=== PATIENT | female | born 1990 | race Caucasian/White ===

== ENCOUNTER 2017-02-12 17:22 | Emergency (ER) | payer OTHER ==
[2017-02-12 17:27] VITALS: BP 112/72; PULSE 83; TEMP 98.7; BMI 24.7
--- NOTE | 2017-02-12 17:36 | PDOC ---
History of Present Illness - General History Source: Patient Exam Limitations: No Limitations - History of Present Illness Initial Comments: 02/12/17 18:09 The patient is a 26 year old female who presents to the ED with complaints of lower abdominal pain and nausea for the past couple of weeks. The patient states that she has been trying to get for the past couple of months, had a test via blood test on December 11 which was negative but since then became and has been experiencing her symptoms. She states the pain is sharp and intermittent and is is aggravated when the patient drives over bumps in the road. Additionally she complains of urinary frequency, cloudy urine, and a stringy white vaginal discharge.She denies any vaginal bleeding. She denies any fevers, chills, vomiting, diarrhea or other urinary complaints. LMP was in July but the patient states her periods are typically irregular. She states she has her first appointment with an BAKER SECOND on Friday. Medical history: Hypothyroidism, on synthroid Surgical history: No surgeries Social history: Former smoker but quit a few months ago. Denies alcohol or drug use. <Tsering Grimm - Last Filed: 02/12/17 18:09> <Andrew Bradford - Last Filed: 02/12/17 18:30> - General Chief Complaint: Pain, Acute Stated Complaint: ABD PAIN 10WKS PREG Time Seen by Provider: 02/12/17 17:34 Past History <Tsering Grimm - Last Filed: 02/12/17 18:09> - Past Medical History Thyroid Disease: Yes - Reproductive History Is Patient Now?: Yes (PT STATES) Therapeutic (s) & number: Yes (1) - Psycho/Social/Smoking Cessation Hx Anxiety: No Suicidal Ideation: No Smoking History: Former smoker Have you smoked in the past 12 months: Yes Number of Cigarettes Smoked Daily: 4 If you are a former smoker, when did you quit?: 4 Information on smoking cessation initiated: Yes 'Breaking Loose' booklet given: 02/12/17 Hx Alcohol Use: No Drug/Substance Use Hx: No Substance Use Type: None <Andrew Bradford - Last Filed: 02/12/17 18:30> - Past Medical History Allergies/Adverse Reactions: Allergies Allergy/AdvReac Type Severity Reaction Status Date / Time No Known Allergies Allergy Verified 02/12/17 17:23 Home Medications: Ambulatory Orders Levothyroxine [Synthroid -] 25 mcg PO DAILY 02/12/17 Comb No.42/Folic Acid [Prena1 Chew Tablet] 0 mg PO DAILY 02/12/17 Review of Systems - Review of Systems Able to Perform ROS?: Yes Comments:: 02/12/17 18:12 CONSTITUTIONAL: Absent: fever, no chills, no fatigue EYES: Absent: visual changes ENT: Absent: ear pain, no sore throat CARDIOVASCULAR: Absent: chest pain, no palpitations RESPIRATORY: Absent: cough, no SOB GI: Present: lower abdominal pain, nausea Absent: no vomiting, no constipation, no diarrhea GENITOURINARY: Present: frequency, vaginal discharge Absent: dysuria, no hematuria MUSKULOSKELETAL: Absent: back pain, no arthralgia, no myalgia SKIN: Absent: rash NEURO: Absent: headache All Other Systems: Reviewed and Negative <Tsering Grimm - Last Filed: 02/12/17 18:09> *Physical Exam - Vital Signs Last Vital Signs Temp Pulse Resp BP Pulse Ox 98.7 F 83 16 112/72 100 02/12/17 17:23 02/12/17 17:23 02/12/17 17:23 02/12/17 17:23 02/12/17 17:23 - Physical Exam Comments: 02/12/17 18:14 GENERAL: Well-appearing, well-nourished. No apparent distress. HEENT: Normocephalic, atraumatic. PERRL, EOM intact. CARDIOVASCULAR: Normal S1, S2. Regular rate and rhythm. PULMONARY: Clear to auscultation bilaterally. ABDOMEN: Soft, mild tenderness over bladder and superpubic area, no guarding, no rebound , uterus not palpable, no CVAT EXTREMITIES: Normal ROM in all four extremities. No gross deformities. SKIN: Warm, dry. No rash NEUROLOGICAL: No focal neurological deficits. <Tsering Grimm - Last Filed: 02/12/17 18:09> - Vital Signs Last Vital Signs Temp Pulse Resp BP Pulse Ox 98.7 F 83 16 112/72 100 02/12/17 17:23 02/12/17 17:23 02/12/17 17:23 02/12/17 17:23 02/12/17 17:23 <Andrew Bradford - Last Filed: 02/12/17 18:30> ED Treatment Course - ADDITIONAL ORDERS Additional order review: Laboratory Results 02/12/17 17:33 Urine Color Yellow Urine Appearance Clear Urine pH 7.5 Ur Specific [place] 1.020 Urine Protein Trace Urine Glucose (UA) Negative Urine Ketones Negative Urine Blood Negative Urine Nitrite Negative Urine Bilirubin Negative Urine Urobilinogen 0.2 Ur Leukocyte Esterase Negative Urine HCG, Qual Positive <Tsering Grimm - Last Filed: 02/12/17 18:09> Medical Decision Making - Medical Decision Making 02/12/17 18:25 The momentary mild episodes of pain without bleeding or other abnormal vaginal discharge suggests a benign etiology, which likely involves changes to the musculoskeletal system or ligamentous attachments of the uterus. Ultrasound shows a normal IUP and urinalysis is negative. The patient has an appointment with her BAKER SECOND on Friday. Recommend bedrest until BAKER SECOND follow-up or return to the ER if there is more severe pain or vaginal bleeding. <Andrew Bradford - Last Filed: 02/12/17 18:30> *DC/Admit/Observation/Transfer - Attestations Scribe Attestion: 02/12/17 18:15 Documentation prepared by Tsering Grimm, acting as medical education coordinator for Andrew Mckeon MD. <Tsering Grimm - Last Filed: 02/12/17 18:09> - Discharge Dispostion Admit: No <Andrew Bradford - Last Filed: 02/12/17 18:30> Diagnosis at time of Disposition: Abdominal pain during in first trimester - Discharge Dispostion Disposition: HOME Condition at time of disposition: Stable - Patient Instructions Printed Discharge Instructions: Common Discomforts and Bodily Changes During Additional Instructions: You have a healthy appearing uterine . However, until consultation with your [facility] doctor, bedrest is recommended. He should return to the emergency room if there is any vaginal bleeding or more severe pain. - Post Discharge Activity Work/School Note: Back to Work
[2017-02-12 17:45] LABS: PH,URINE 7.5 (4.5-8); URINE APPEARANCE Clear; URINE BILIRUBIN Negative (NEGATIVE); URINE BLOOD Negative (NEGATIVE); URINE GLUCOSE (UA) Negative (NEGATIVE); URINE KETONE Negative (NEGATIVE); URINE LEUK ESTERASE Negative (NEGATIVE); URINE NITRITE Negative (NEGATIVE); URINE PROTEIN Trace (NEGATIVE); URINE UROBILINOGEN 0.2 (0.2-1.0)
[2017-02-12 17:49] LABS: URINE COLOR YELLOW
== END 2017-02-12 18:36 | disposition home or self-care (01) ==
LOC: FER 17:22
DX: O26.891 Other specified pregnancy related conditions, first trimester (principal); Z3A.00 Weeks of gestation of pregnancy not specified; E03.9 Hypothyroidism, unspecified; Z87.891 Personal history of nicotine dependence
CPT/HCPCS: 76801-TC; 81003; 84703; 99281-25

== ENCOUNTER 2018-04-18 10:41 | Emergency (ER) | payer OTHER ==
[2018-04-18 10:46] VITALS: BP 126/80; PULSE 87; TEMP 98; BMI 27.8
--- NOTE | 2018-04-18 11:25 | PDOC ---
History of Present Illness - General Chief Complaint: Laceration Stated Complaint: LACERATION Time Seen by Provider: 04/18/18 10:51 History Source: Patient - History of Present Illness Initial Comments: 04/18/18 11:33 Patient is a 27 year old female @ a self reported 17 weeks gestation presents to the ED c/o L foot injury. Patient states she was carrying a large can of fruit cocktail when it broke through the shopping bags landing on her foot. Denies any fall or head trauma. Can bear weight and ambulate with pain. Tetanus is UTD. Last OB-Processing Inspector appointment was earlier this week and she was told everything was normal. NKDA Surgical: denies Social: denies toxic habits OB-Processing Inspector: Dr. Severino ([facility]) Past History - Past Medical History Allergies/Adverse Reactions: Allergies Allergy/AdvReac Type Severity Reaction Status Date / Time No Known Allergies Allergy Verified 04/18/18 10:46 Home Medications: Ambulatory Orders Levothyroxine [Synthroid -] 25 mcg PO DAILY 02/12/17 Comb No.42/Folic Acid [Prena1 Chew Tablet] 0 mg PO DAILY 02/12/17 Thyroid Disease: Yes - Reproductive History Therapeutic (s) & number: Yes (1) - Suicide/Smoking/Psychosocial Hx Smoking History: Never smoked Have you smoked in the past 12 months: Yes Number of Cigarettes Smoked Daily: 4 If you are a former smoker, when did you quit?: 4 Information on smoking cessation initiated: No 'Breaking Loose' booklet given: 02/12/17 Hx Alcohol Use: No Drug/Substance Use Hx: No Substance Use Type: None Review of Systems - Review of Systems Constitutional: No: Chills, Fever HEENTM: No: Blurred Vision, Double Vision Respiratory: No: Cough, Shortness of Breath Cardiac (ROS): No: Chest Pain, Lightheadedness, Palpitations, Syncope ABD/GI: No: Constipated, Diarrhea, Nausea, Vomiting : No: Burning, Dysuria *Physical Exam - Vital Signs Last Vital Signs Temp Pulse Resp BP Pulse Ox 98.0 F 87 20 126/80 99 04/18/18 10:43 04/18/18 10:43 04/18/18 10:43 04/18/18 10:43 04/18/18 10:43 - Physical Exam General Appearance: Yes: Nourished, Appropriately Dressed HEENT: positive: Normal Voice, Hearing Grossly Normal Neck: positive: Trachea midline, Supple Respiratory/Chest: positive: Lungs Clear, Normal Breath Sounds Cardiovascular: positive: S1, S2. negative: JVD, Murmur Vascular Pulses: Dorsalis-Pedis (R): 2+, Doralis-Pedis (L): 2+ Gastrointestinal/Abdominal: positive: Normal Bowel Sounds, Soft, Other (Fundal height above umbilicus) Extremity: positive: Normal Capillary Refill, Normal Inspection, Other (L dorsum hematoma with pinpoint bleed, NVI) Integumentary: positive: Dry, Warm Medical Decision Making - Medical Decision Making 04/18/18 11:38 27 year old female with hematoma on L dorsum of foot. NVI, tenderness @ 2nd/3rd/4th metatarsals. Will obtain XR to r/o acute fracture. Patient counseled on risks of gestational imagining. Patient consents to XR w/belly shield. 04/18/18 12:28 Bedside U/S shows FHR 130 XR negative for acute fracture. Will discharge patient home with joss wrap, supportive care, hard sole shoe and return precautions. I discussed the physical exam findings, ancillary test results and final diagnoses with the patient. I answered all of the patient's questions. The patient was satisfied with the care received and felt comfortable with the discharge plan and treatment plan. The patient will return to the Emergency Department with any new, persistent or worsening symptoms. *DC/Admit/Observation/Transfer Diagnosis at time of Disposition: Foot injury - Discharge Dispostion Disposition: HOME Condition at time of disposition: Good Decision to Admit order: No - Referrals Referrals: Mariaelena Carey [Primary Care Provider] - - Patient Instructions Printed Discharge Instructions: DI for Hematoma (Bruise) Additional Instructions: You were evaluated today for a injury to your foot. An X-ray showed no fracture. At this time you are safe for discharge. You can take Tylenol (up to 3200 mg daily) for your pain. Return to the Emergency Department for any new/worsening/concerning symptoms. - Post Discharge Activity Forms/Work/School Notes: Back to Work
--- NOTE | 2018-04-18 11:37 | PDOC ---
Attending Attestation - Resident Resident Name: Maite Manzanares - ED Attending Attestation I have performed the following: I have examined & evaluated the patient, The case was reviewed & discussed with the resident, I agree w/resident's findings & plan, Exceptions are as noted - HPI HPI: 04/18/18 11:41 27yo female at 17 weeks gestation with L foot injury. Dropped a large can of fruit cocktail on her L foot just [employer]. Pain with bearing wt. Large hematoma to top of foot with drop of blood, but no laceration that requires suturing. Tetanus is UTD. - Physicial Exam PE: 04/18/18 11:42 Gen: aaox3, nad Heart: +s1s2 reg lungs: cta b/l abd: soft, gravid just below the umbilicus, nontender, nondistended ext: pedal pulses intact b/l, L foot with large hematoma and drop of blood to anterior aspect of the foot, ttp over 2/3/4th metatarsals. sensation intact. brisk cap refill distal toes neuro: grossly intact, no focal deficits - Medical Decision Making 04/18/18 11:23 I, Dr. Anai Beaver, DO, attest that this document has been prepared under my direction and personally reviewed by me in its entirety. I further attest, that it accurately reflects all work, treatment, procedures and medical decision -making performed by me. 04/18/18 11:38 a/p: 27yo at 17 weeks with L foot injury -large hematoma to the foot -acute ttp over 2/3/4th MTP -tetanus UTD -ice applied -discussed xray imaging - pt agrees and signed the consent for xray imaging, will shield the abd -xray L foot 04/18/18 11:49 no fx on xray - pending official read will place in joss wrap and hard sole shoe for comfort 04/18/18 12:19 xray negative stable for dc to home
== END 2018-04-18 12:30 | disposition home or self-care (01) ==
LOC: JER 10:41
DX: O26.892 Other specified pregnancy related conditions, second trimester (principal); S90.32XA Contusion of left foot, initial encounter; W20.8XXA Other cause of strike by thrown, projected or falling object, initial encounter; Y93.89 Activity, other specified; Y92.89 Other specified places as the place of occurrence of the external cause; Y99.8 Other external cause status; Z3A.17 17 weeks gestation of pregnancy
CPT/HCPCS: 73630-TC-LT; 99282-25